=== PATIENT | female | born 1960 | race Caucasian/White ===

== ENCOUNTER 2019-05-04 10:15 | Emergency (ER) | payer MEDICARE ==
[~2019-05-04] VITALS: Ht 157.5 cm; Wt 103.0 kg
[2019-05-04] MEDS ORDERED: TRAMADOL HCL 50 MG TAB PO ONE (10:30)
[2019-05-04] MEDS ORDERED: CYCLOBENZAPRINE HCL 10 MG TAB PO ONE (10:30)
--- NOTE | 2019-05-04 10:50 | NUR ---
PATIENT STATING THAT SHE IS UNABLE TO GIVE URINE SAMPLE AT THIS TIME; PATIENT PROVIDED WATER AT THIS TIME.
[2019-05-04 11:18] VITALS: BP 129/92
== END 2019-05-04 11:20 | disposition home or self-care (01) ==
LOC: ER 10:15
DX: S39.012A Strain of muscle, fascia and tendon of lower back, initial encounter (principal); I10 Essential (primary) hypertension
CPT/HCPCS: 99283

== ENCOUNTER 2019-08-13 14:43 | Emergency (ER) | payer MEDICARE ==
[~2019-08-13] VITALS: Ht 157.5 cm; Wt 103.0 kg
--- OUTSIDE RECORDS SUMMARY | 2019-08-13 14:46 | XMS REPORT ---
Author Author [facility] Address Unknown Phone Unavailable Care Team Providers Care Hat Cutter Name Role Phone Unavailable Unavailable Payers Payer Name Policy Type Policy Number Effective Date Expiration Date Problems This patient has no known problems. Allergies, Adverse Reactions, Alerts Allergy Name Allergy Type Status Severity Reaction(s) Onset Date Inactive Date Treating Clinician Comments naproxen DA Active [place] 2014-11-08 00:00:00 No Known Intolerances DA Active U 2010-05-02 00:00:00 Medications This patient has no known medications.
[2019-08-13] MEDS ORDERED: DIAZEPAM 5 MG TAB PO ONE (15:00)
[2019-08-13] MEDS ORDERED: KETOROLAC TROMETHAMINE 60 MG/2 ML VIAL IM ONE (15:00)
[2019-08-13] MEDS ORDERED: DIAZEPAM 2 MG TAB PO ONE (15:00)
--- NOTE | 2019-08-13 15:27 | NUR ---
pt refused vitals
[2019-08-13] MEDS ORDERED: ULTRAM50 MG PO (15:33)
[2019-08-13] MEDS ORDERED: ROBAXIN-750750 MG PO (15:33)
== END 2019-08-13 15:38 | disposition home or self-care (01) ==
LOC: ER 14:43
DX: M46.1 Sacroiliitis, not elsewhere classified (principal); Y93.E6 Activity, residential relocation; F17.210 Nicotine dependence, cigarettes, uncomplicated; I10 Essential (primary) hypertension; G89.29 Other chronic pain
CPT/HCPCS: 99282; J1885

== ENCOUNTER 2020-06-29 09:16 | Emergency (ER) | payer MEDICARE ==
[~2020-06-29] VITALS: Ht 157.5 cm; Wt 103.0 kg
[~2020-06-29 09:16] MED LIST: ROBAXIN-750750 MG PO; ULTRAM50 MG PO
--- NOTE | 2020-06-29 09:35 | NUR ---
PT TO CT SCAN AT THIS TIME ACCOMPANIED BY LLUVIA RN, DR. AGUILERA MADE AWARE OF PATIENT'S SYMPTOMS
[2020-06-29] MEDS ORDERED: HYDROCODONE/APAP 7.5MG-325MG 1 EA TAB PO STA (09:44)
[2020-06-29] MEDS ORDERED: PREDNISONE 20 MG TAB PO ONE (09:45)
[2020-06-29] MEDS ORDERED: KETOROLAC TROMETHAMINE 60 MG/2 ML VIAL IM ONE (09:45)
[2020-06-29] MEDS ORDERED: PREDNISONE20 MG PO (10:27)
--- NOTE | 2020-06-29 10:28 | Emergency Department Note ---
History of Present Illnes History of Present Illness Chief Complaint: left knee pain History of Present Illness This is a 59 year old female. was doing well until 2 months ago then dx with left knee osteoarthritis. Historian: Patient Arrival Mode: Car History limited by: condition of the patient (normal) News Copy Editor Required: No Onset (how long ago): week(s) (3) Location: left knee Quality: sharp Radiation: Reports non-radiation Severity: severe Onset quality: gradual Duration (how long): week(s) (3) Timing of current episode: constant Progression: worsening Chronicity: new Context: Denies recent illness, Denies recent surgery, Denies recent immobilization, Denies recent travel, Denies trauma/injury, Denies new medications, Denies hx of DVT/PE, Denies non-compliance w/ medications Relieving factors: none Exacerbating factors: movement Associated symptoms: Reports denies other symptoms Treatments prior to arrival: none Past Medical/Family History Physician Review I have reviewed the patient's past medical and family history. Any updates have been documented here. Past Medical History Recent Fever: No Clinical Suspicion of Infectio: No New/Unexplained Change in Ment: No Past Medical History: Hypertension, Osteoarthritis Other Medical History: BIPOLAR Past Surgical History: None Other Surgery: LEFT ANKLE RIGHT HAND Social History Smoking Cessation: Never Smoker Counseling Performed: No Any Illegal Drug Use: No TB Exposure/Symptoms: No Physically hurt or threatened: No Family History Family history of heart diseas: No Other Last Tetanus: UNKNOWN Any Pre-Existing Lines (PICC,: No Is patient up to date on immun: No Review of Systems Review of Systems Constitutional: Reports no symptoms EENTM: Reports no symptoms Cardiovascular: Reports no symptoms Respiratory: Reports no symptoms Gastrointestinal: Reports no symptoms Genitourinary: Reports no symptoms Musculoskeletal: Reports as per HPI Integumentary: Reports no symptoms Neurological: Reports no symptoms Psychological: Reports no symptoms Endocrine: Reports no symptoms Hematological/Lymphatic: Reports no symptoms Review of other systems: All other systems negative Physical Exam Related Data Allergies: Coded Allergies: No Known Allergies (Unverified , 05/04/19) Triage Vital Signs Vital Signs Date Time Temp Pulse Resp B/P (MAP) Pulse Ox O2 Delivery O2 Flow Rate FiO2 06/29/20 09:24 98.9 98 20 157/95 99 Room Air Vital signs reviewed: Yes Physical Exam CONSTITUTIONAL Constitutional: Present well-developed, Present well-nourished HENT HENT: Present normocephalic, Present atraumatic, Present oropharynx clear/moist, Present nose normal HENT L/R: Present left ext ear normal, Present right ext ear normal EYES Eyes: Reports PERRL, Reports conjunctivae normal NECK Neck: Present ROM normal PULMONARY Pulmonary: Present effort normal, Present breath sounds normal CARDIOVASCULAR Cardiovascular: Present regular rhythm, Present heart sounds normal, Present capillary refill normal, Present normal rate GASTROINTESTINAL Abdominal: Present soft, Present nontender, Present bowel sounds normal GENITOURINARY Genitourinary: Present exam deferred SKIN Skin: Present warm, Present dry MUSCULOSKELETAL Musculoskeletal: Present tenderness (left knee// no signs of infection), Present swelling NEUROLOGICAL Neurological: Present alert, Present oriented x 3, Present no gross motor or sensory deficits PSYCHOLOGICAL Psychological: Present mood/affect normal, Present judgement normal Assessment & Plan Medical Decision Making MDM osteoarthritis Reassessment Reassessment symptom much better Assessment & Plan Final Impression: (1) Osteoarthritis Depart Disposition: HOME, SELF-CARE Last Vital Signs Date Time Temp Pulse Resp B/P (MAP) Pulse Ox O2 Delivery O2 Flow Rate FiO2 06/29/20 09:24 98.9 98 20 157/95 99 Room Air Home Meds Active Scripts Prednisone (PREDNISONE) 20 Mg Tab, 60 MG PO DAILY PRN for MODERATE PAIN (4-6), # 12 TAB TAKE ALL 3 20 MG PILLS AT ONCE( START TOMORROW) Prov:DAQUAN AGUILERA 06/29/20 Methocarbamol (ROBAXIN-750) 750 Mg Tablet, 750 MG PO Q8HR PRN for MUSCLE SPASMS, #14 Prov:ROSY BRINK DO 08/13/19 Tramadol Hcl (ULTRAM) 50 Mg Tablet, 50 MG PO Q6HR PRN for MUSCLE SPASMS, #10 TAB Prov:ROSY BRINK DO 08/13/19 Medications in the ED Ketorolac Tromethamine 60 mg ONCE ONCE IM Last administered on 06/29/20at 10:13; Admin Dose 60 MG; Start 06/29/20 at 09:45; Stop 06/29/20 at 10:02; Status DC Prednisone 80 mg ONCE ONCE PO Last administered on 06/29/20at 10:13; Admin Dose 80 MG; Start 06/29/20 at 09:45; Stop 06/29/20 at 10:02; Status DC Acetaminophen/ Hydrocodone Bitart 1 ea ONCE STAT PO Last administered on 06/29/20at 10:13; Admin Dose 1 EA; Start 06/29/20 at 09:44; Stop 06/29/20 at 10:02; Status DC DAQUAN AGUILERA Jun 29, 2020 10:28
[2020-06-29 10:41] VITALS: BP 142/78
== END 2020-06-29 10:43 | disposition home or self-care (01) ==
LOC: ER 09:22
DX: M17.12 Unilateral primary osteoarthritis, left knee (principal); M25.462 Effusion, left knee; I10 Essential (primary) hypertension; F31.9 Bipolar disorder, unspecified
CPT/HCPCS: 99283; J1885; J7512

== ENCOUNTER 2020-07-05 08:34 | Emergency (ER) | payer MEDICARE ==
[~2020-07-05] VITALS: Ht 157.5 cm; Wt 103.0 kg
[~2020-07-05 08:34] MED LIST changes: +PREDNISONE20 MG PO
== END 2020-07-05 09:01 | disposition home or self-care (01) ==
LOC: ER 08:54
DX: M25.562 Pain in left knee (principal); M17.12 Unilateral primary osteoarthritis, left knee; I10 Essential (primary) hypertension; F31.9 Bipolar disorder, unspecified
CPT/HCPCS: 99283

== ENCOUNTER 2021-11-02 18:22 | Emergency (ER) | payer MEDICARE ==
[~2021-11-02] VITALS: Ht 157.5 cm; Wt 103.0 kg
[2021-11-02] MEDS ORDERED: KETOROLAC TROMETHAMINE 30 MG/ML VIAL IM STA (18:46)
[2021-11-02] MEDS ORDERED: CYCLOBENZAPRINE5 MG PO (18:56)
== END 2021-11-02 19:40 | disposition home or self-care (01) ==
LOC: ER 18:40
DX: M54.50 Low back pain, unspecified (principal); M25.561 Pain in right knee; G89.29 Other chronic pain; I10 Essential (primary) hypertension; F31.9 Bipolar disorder, unspecified
CPT/HCPCS: 99282; J1885

== ENCOUNTER → 2022-04-11 | Outpatient (CLI) | payer MEDICARE ==
[~2022-04-11] MED LIST changes: +CYCLOBENZAPRINE5 MG PO
== END ==
LOC: MAMMO 12:55
PROVIDERS: ATTEND Internal Medicine
DX: Z12.31 Encounter for screening mammogram for malignant neoplasm of breast (principal); J45.909 Unspecified asthma, uncomplicated
CPT/HCPCS: 71046; 77067